=== PATIENT | male | born 1955 | race Caucasian/White ===

== ENCOUNTER 2017-08-12 10:17 | Day surgery (SDC) | payer OTHER ==
[~2017-08-12] VITALS: Ht 188 cm; Wt 81.9 kg
[~2017-08-12 10:17] MED LIST: BUPIVACAINE/PF 0.5% ONE; No meds per pt.
[2017-08-12 10:50] VITALS: BP 117/72
[2017-08-12] MEDS ORDERED: FENTANYL PF 100 MCG/2ML ONE ×2 (10:50)
[2017-08-12] MEDS ORDERED: MIDAZOLAM 1 MG/ML, 2ML ONE (10:50)
[2017-08-12] MEDS ORDERED: PROPOFOL 10 MG/ML, 20ML ONE (10:52)
[2017-08-12] MEDS ORDERED: ROCURONIUM 10 MG/ML,10ML ONE ×2 (10:53→11:26)
[2017-08-12] MEDS ORDERED: LACTATED RINGERS 1,000 ML IV SCH (10:54)
[2017-08-12] MEDS ORDERED: GLYCOPYRROLATE 0.4 MG/2 ML, 2ML ONE (10:54)
[2017-08-12] MEDS ORDERED: NEOSTIGMINE 1 MG/ML, 10ML ONE (10:54)
[2017-08-12] MEDS ORDERED: CEFAZOLIN 1,000 MG ONE (11:26)
[2017-08-12] MEDS ORDERED: OXYcodone 5 MG/5 ML ORAL.SOL UDC PO PRN ×2 (11:30→12:30)
[2017-08-12] MEDS ORDERED: MEPERIDINE/PF 25MG/0.5ML IVPush PRN (11:30)
[2017-08-12] MEDS ORDERED: ACETAMINOPHEN 325 MG TABLET PO PRN (11:30)
[2017-08-12] MEDS ORDERED: hydrALAzine 20 MG/ML, 1ML IV PRN (11:30)
[2017-08-12] MEDS ORDERED: HYDROmorphone 1 MG/ML, 1ML IV PRN (11:30)
[2017-08-12] MEDS ORDERED: ONDANSETRON 2MG/ML, 2ML IVPush PRN ×2 (11:30→12:30)
[2017-08-12] MEDS ORDERED: PROMETHAZINE 25 MG/ML, 1ML IV PRN (11:30)
[2017-08-12] MEDS ORDERED: LABETALOL 5MG/ML, 20ML IV PRN (11:30)
[2017-08-12] MEDS ORDERED: FENTANYL PF 100 MCG/2ML IV PRN (11:30)
[2017-08-12] MEDS ORDERED: KETOROLAC 30 MG/1 ML ONE (11:40)
[2017-08-12] MEDS ORDERED: BUPIVACAINE/PF-EPI 0.5% 1:200K IM ONE (11:42)
[2017-08-12] MEDS ORDERED: ACETAMINOPHEN 650 MG/20.3 ML UDC ONE (12:26)
[2017-08-12] MEDS ORDERED: OXYcodone 5 MG/5 ML ORAL.SOL UDC ONE (12:26)
[2017-08-12] MEDS ORDERED: HYDROmorphone 2 MG/ML, 1ML IVPush PRN (12:30)
== END 2017-08-12 16:50 | disposition home or self-care (01) ==
LOC: OUT 10:17
PROVIDERS: ATTEND Surgery
DX: K40.90 Unilateral inguinal hernia, without obstruction or gangrene, not specified as recurrent (principal); Z87.891 Personal history of nicotine dependence; Z72.89 Other problems related to lifestyle
CPT/HCPCS: 49650; 93005; C1781; J0690; J1885; J2250; J2704; J2710; J3010; J3490; J7120; S2900